=== PATIENT | female | born 1980 | race Caucasian/White ===

== ENCOUNTER 2024-10-14 14:51 | Emergency (ER) | payer OTHER, SELFPAY ==
[2024-10-14 15:04] VITALS: BP 154/110
[2024-10-14 15:36] LABS: % Basophils 0.4 % (0-2); % Eosinophils 0.8 % (0-6); % Immature Granulocytes 0.9 % (0-0.5); % Lymphocytes 18.1 % (20.5-51.1); % Monocytes 7.2 % (1.7-9.3); % Neutrophils 72.6 % (42.2-75.2); Absolute Eosinophils 0.1 10^3/uL (0-0.7); Absolute Immature Granulocytes 0.1 10^3/uL (0-0.05); Absolute Lymphocytes 1.8 10^3/uL (1.2-3.4); Absolute Monocytes 0.7 10^3/uL (0.1-0.6); Absolute Neutrophils 7.1 10^3/uL (1.4-6.5); Hemoglobin 15.1 g/dL (12.0-16.0); Mean Corp Hgb Conc. 33.6 g/dL (33.0-37.0); Mean Corpuscular Hgb 28.9 pg (27.0-31.0); Mean Platelet Volume 10.6 fL (7.4-10.4); Nucleated Red Blood Cells % 0 %; Platelet Count 312 10^3/uL (130-400); Red Blood Cell Count 5.23 10^6/uL (4.20-5.40); Red Cell Dist. Width 13.4 % (11.5-14.5); White Blood Cell Count 9.8 10^3/uL (4.8-10.8)
[2024-10-14 15:42] LABS: ALT (SGPT) 22 U/L (0-35); AST (SGOT) 27 U/L (14-36); Albumin 4.8 g/dl (3.5-5.0); Alkaline Phosphatase 79 U/L (38-126); Blood Urea Nitrogen 11 mg/dl (7-17); Calcium 9.5 mg/dl (8.4-10.2); Carbon Dioxide 19 mmol/L (22-30); Chloride 107 mmol/L (98-107); Glucose 113 mg/dl (70-99); Potassium 4.3 mmol/L (3.5-5.1); Sodium 139 mmol/L (135-145); Total Bilirubin 0.6 mg/dl (0.2-1.3); Total Protein 7.8 g/dl (6.3-8.2); eGFR > 60.00
[2024-10-14 15:47] LABS: INR 0.98; PT 13.3 Sec (11.4-14.6)
[2024-10-14 15:54] LABS: Troponin I < 0.012 ng/ml
[2024-10-14 16:12] LABS: TSH Reflex To Free T4 3.05 uIU/ml (0.47-4.68)
--- NOTE | 2024-10-14 17:28 | ED.GENMED ---
History of Present Illness
General
Chief Complaint: Heart Rate Problem
Time Seen by Provider: 10/14/24 16:32
History of Present Illness
History of Present Illness:
44-year-old female presents emergency department for evaluation of episodes of palpitations and tachycardia lasting anywhere from 30 minutes to 2 hours occurring each of the past 3 days. Denies chest pain, shortness of breath, dizziness, or near
syncope during the events. Reports her heart rates with activity monitor 670 variability. No prior history of cardiac dysrhythmia. Denies tobacco use, excessive caffeine use
Past History
Past History
ED Past Medical History: Other (N/A)
Social History
Tobacco: Non-smoker
Personal: Single
Review of Systems
Review of Systems
Allergies reviewed?: Yes
All Other Systems: ROS reviewed and negative except as documented in HPI and ROS
Phy Exam
Physical Exam
Physical Exam:
GEN: Well appearing, NAD, WDWN
HEENT: Oral mucosa moist, no scleral icterus
Cardiac: Regular rate and rhythm, no murmurs
Lung: No respiratory distress, no tachypnea
MSK: No gross deformity or injuries
Skin: Good color, no pallor or jaundice, no rashes
Neuro: AO x3, moves all extremities freely
Psych: Calm, cooperative
Course
Orders/Labs/Results
Orders:
Orders
10/14/24 14:53
EKG [Electrocardiogram (*1)] Urgent
Reason for Study: Tachycardia
10/14/24 14:54
EKG- Treatment ONCE
10/14/24 15:17
Comprehensive Metabolic Panel Urgent
Prothrombin Time Urgent
TSH Reflex To Free T4 Urgent
Troponin I Urgent
10/14/24 15:18
Complete Blood Count/With Diff Urgent
Abnormal Lab Results
10/14/24 10/14/24
15:17 15:18
MPV 10.6 H fL
(7.4-10.4)
Abs Immat Gran (auto) 0.1 H 10^3/uL
(0-0.05)
Absolute Neuts (auto) 7.1 H 10^3/uL
(1.4-6.5)
Absolute Monos (auto) 0.7 H 10^3/uL
(0.1-0.6)
Immature Gran % 0.9 H %
(0-0.5)
Lymphocytes % 18.1 L %
(20.5-51.1)
Carbon Dioxide 19 L mmol/L
(22-30)
Glucose 113 H mg/dl
(70-99)
10/14/24 15:18
10/14/24 15:17
Vital Signs
Initial and Last Documented VS:
Initial Vital Signs
Temp Pulse Resp BP Pulse Ox
99.1 F 98 18 154/110 99
10/14/24 15:04 10/14/24 15:04 10/14/24 15:04 10/14/24 15:04 10/14/24 15:04
Last Documented Vital Signs
Temp Pulse Resp BP Pulse Ox
99.1 F 79 22 148/97 98
10/14/24 15:04 10/14/24 17:45 10/14/24 17:45 10/14/24 18:22 10/14/24 18:22
MDM/Problems Addressed
MDM/Problems Addressed:
Patient without arrhythmias in the emergency department. Labs reassuring. I suspect this is more of an SVT versus a potential atrial flutter given the consistency of her tachycardia, communicated with cardiology for outpatient follow-up Holter
monitor
*Critical Care Note
Total Time (30-74mins, 75-104mins- exclusive of procedures): Not Applicable
ED Attending Note
-
Portions of this chart may have been created with voice recognition software.� Occasional wrong word or��sound alike� substitutions may have occurred due to the inherent limitations of voice recognition software.
Discharge Plan
Departure
Patient Disposition: Home (Routine Discharge)
Date of Disposition: 10/14/24
Time of Disposition: 17:28
Patient with high blood pressure during this ER visit?: No
Discharge Problem:
Tachycardia
Instructions: Supraventricular tachycardia (SVT)
Referrals:
Sean Parks MD [Active] -
Activity Restrictions/Additional Instructions:
Follow up with cardiology for a Holter Monitor
Interventions
Interventions:
*Risk Screen - Suicide Last Done: 10/14/24 15:07
*General Assessment Last Done: 10/14/24 15:07
*Neglect/Abuse Screening Last Done: 10/14/24 15:07
ED- Fall Risk Assessment Last Done: 10/14/24 17:07
*ED COVID-19 Vaccine History Last Done: 10/14/24 15:07
*Nursing Disposition Last Done: 10/14/24 18:22
ED- Cardiac Assessment Last Done: 10/14/24 17:07
ED- Pulmonary Assessment Last Done: 10/14/24 17:07
Discharge Date and Time
Discharge Date/Time: 10/14/24 18:24
Print Language: AZERI
[2024-10-14 18:22] VITALS: BP 148/97
== END 2024-10-14 18:24 | disposition home or self-care (01) ==
LOC: EMR 14:51
PROVIDERS: EMERGENCY PHYSICIAN Emergency Medicine; FAMILY PHYSICIAN Emergency Medicine
DX: R00.0 Tachycardia, unspecified (principal)
CPT/HCPCS: 99284; 80053; 84443; 84484; 85025; 85610; 93005

== ENCOUNTER → 2024-12-12 13:53 | Outpatient (REF) | payer OTHER, SELFPAY | LOC: RCS 13:53 | PROVIDERS: ATTENDING PHYSICIAN Internal Medicine Cardiovascular Disease; FAMILY PHYSICIAN Emergency Medicine | DX: I48.3 Typical atrial flutter (principal) | CPT/HCPCS: 93306 ==